=== PATIENT | male | born 1970 | race Caucasian/White ===

== ENCOUNTER 2020-11-13 11:49 | Emergency (ER) | payer BC, SELFPAY ==
[2020-11-13] VITALS (7 sets, daily range): BP systolic 106–139; BP diastolic 62–86; PULSE 79–94; RESP 16–27; TEMP 36.9; O2SAT 94–96
--- NOTE | ~2020-11-13 | XR_ITS ---
EXAMINATION: XR chest 1V portable DATE: 11/13/2020 17:17 INDICATION: Fever. Headache. TECHNIQUE: A single frontal view of the chest was obtained. COMPARISON: CT abdomen and pelvis 05/27/2009 FINDINGS: The lung volumes are small. There are airspace opacities in the mid and lower lung zones. N o pleural effusion or pneumothorax. Cardiomegaly is noted. IMPRESSION: 1. Small lung volumes with airspace opacities in the mid and lower lung zones, consistent with atelec tasis versus pneumonia. 2. Cardiomegaly. Reviewed, dictated and finalized at location A. OLOGY ORDERLY IMPRESSION: 1. Small lung volumes with airspace opacities in the mid and lower lung zones, consistent with atelectasis versus pneumonia. 2. Cardiomegaly.
--- NOTE | 2020-11-13 11:52 | ECG_ITS ---
Measurements Intervals [place] Rate: 96 P: 26 DC: 112 QRS: 5 QRSD: 87 T: -17 QT: 317 QTc: 402 Interpretive Statements SINUS RHYTHM WITH SHORT DC INTERVAL VOLTAGE CRITERIA FOR LVH CONSIDER INFERIOR INFARCT, AGE INDETERMINATE BORDERLINE T WAVE ABNORMALITY- ANTEROLATERAL LEADS BASELINE ARTIFACT- AVL, AVF ABNORMAL ECG Electronically Signed On 11-13-2020 15:36:44 DENTAL LABORATORY ASSISTANT by Riky Andrade D.O.
[2020-11-13 12:15] LABS: Basophils Percent Auto 0.3 % (0.2-1.2); Eosinophils Percent Auto 0.3 % (0-4.4); Hematocrit 41.4 % (42.0-52.0); Hemoglobin 14.1 g/dL (14.0-18.0); Immature Granulocyte Absolute 0.01 K/mm3 (0.00-0.031); Immature Granulocyte Percent A 0.3 % (0-0.5); Lymphocytes Absolute Auto 0.99 K/mm3 (0.9-3.2); Lymphocytes Percent Auto 32.6 % (18.3-44.2); Mean Corpuscular HGB Conc 34.1 g/dl (32-36); Mean Corpuscular Hemoglobin 28.8 pg (26-34); Mean Corpuscular Volume 84.5 fl (80-100); Mean Platelet Volume 9.2 fl (7.4-10.4); Monocytes Absolute Auto 0.2 K/mm3 (0.1-0.6); Monocytes Percent Auto 7.2 % (2.6-8.5); Neutrophils Absolute Auto 1.8 K/mm3 (1.3-6.7); Neutrophils Percent Auto 59.3 % (45.5-73.1); Platelet Count Result 160 k/mm3 (150-375)
[2020-11-13 12:28] LABS: Alanine Aminotransferase 54 U/L (4-50); Albumin Level 4.3 g/dL (3.5-5.1); Alkaline Phosphatase 69 U/L (38-126); Anion Gap 10 mmol/L (8-16); Aspartate Amino Transferase 50 U/L (17-59); Bilirubin,Total 0.6 mg/dL (0.2-1.3); Blood Urea Nitrogen 15 mg/dL (9-20); Calcium 8.3 mg/dL (8.4-10.2); Carbon Dioxide 30 mmol/L (22-30); Chloride 99 mmol/L (98-107); Estimated CRCL calculation 91 ml/min; Estimated Glomerular Filt Rate > 60; Glucose 99 mg/dL (75-110); Potassium 3.5 mmol/L (3.4-5.0); Sodium 139 mmol/L (137-145)
[2020-11-13] MEDS: KETOROLAC 30 MG/ML VIAL (*BKC) IV PUSH (15:01)
[2020-11-13] MEDS: SODIUM CHLORIDE 0.9% IV 1,000 ML 999 ML IV CONT (15:01)
[2020-11-13 16:12] LABS: Add Urine Microscopic? YES; Appearance Urine Clear (Clear); Bilirubin Urine Negative (Negative); Blood Urine Negative (Negative); Color Urine Yellow (Yellow); Glucose Urine UA Negative (Negative); Ketones Urine 1+ mg/dL (Negative); Leukocyte Esterase Ur Negative LEU/UL (Negative); Mucus Urine Few /lpf; Nitrate Urine Negative (Negative); Protein Urine 2+ mg/dL (Negative); Specific Grav Ur 1.028 (1.001-1.035); Squamous Epithelial Cell Urine Rare /hpf (Few); Urobilinogen Urine Negative mg/dL (<2.0); WBC Urine 0-3 /hpf
--- NOTE | 2020-11-13 16:55 | ED.WEAKNESS ---
HPI - Weakness General Chief complaint: Weakness Stated complaint: fatigued, SOB Time Seen by Provider: 11/13/20 14:20 History of Present Illness HPI Narrative: Patient is a 50-year-old male who presents ER with fever and weakness. Ongoing for the last 5 to 6 days since returning from [facility] on a vacation. Reports he had flown down there and flown back. No known Covid exposures. He has had fever up to 100.4 ?F. He has no sore throat or productive cough. He does have a dry cough. Mild sinus congestion. No loss of taste or smell. Reports has been trying to stay hydrated. No syncope or dizziness. Related Data Allergies Allergy/AdvReac Type Severity Reaction Status Date / Time No Known Allergies Allergy Mild Verified 11/13/20 11:50 Review of Systems Review of Systems: All systems reviewed & are unremarkable except as noted in HPI and below Constitutional: Constitutional: Denies chills, Reports fatigue, Reports fever(s) and Reports weakness ENT: Reports nasal congestion and Denies sore throat Cardiovascular: Cardiovascular: Denies chest pain, Denies rapid heart rate and Denies radiating jaw, neck or arm pain Respiratory: Respiratory: Reports cough, Denies dyspnea and Denies wheezing Gastrointestinal: Gastrointestinal: Denies abdominal pain, Denies nausea and Denies vomiting PMFSH Past Medical History Medical History (Updated 11/13/20 @ 17:42 by Jeff Chand MD) Diverticulitis Surgical History Surgical History (Updated 11/13/20 @ 17:04 by Jeff Chand MD) No pertinent past surgical history Family History Family History (Updated 11/14/18 @ 14:18 by DOCTOR UNKNOWN) Sibling Family history of alcoholism Grandparent Family history of malignant neoplasm of breast Social History Social History Smoking status: Former smoker Smoking end date: 10/18/10 Alcohol intake: never Gender identity (if verbalized by the patient): Male Exam Narrative: Exam Narrative: GENERAL: Well-appearing, well-nourished, and in no acute distress. HEAD: Normocephalic, atraumatic. CHEST: Clear to auscultation. No respiratory distress. HEART: Regular rate and rhythm. Normal peripheral pulses. ABDOMEN: Soft, nontender, nondistended. EXTREMITIES: Normal range of motion. No edema. SKIN: Warm, dry, no rash. NEURO: Alert and oriented x3. PSYCH: Normal mood and affect. Course Course Emergency Course: Flu negative. Covid pending. Informed of results. Discharge home with abx due to possible pna. Discussed that he should self isolate and patient verbalized understanding. Vital Signs Vital signs: Vital Signs Temperature 98.4 F 11/13/20 11:59 Pulse Rate 94 11/13/20 11:59 Respiratory Rate 18 11/13/20 11:59 Blood Pressure 139/76 11/13/20 11:59 Pulse Oximetry 95 11/13/20 11:59 Temperature 98.4 F 11/13/20 11:59 Pulse Rate 85 11/13/20 16:16 Respiratory Rate 27 H 11/13/20 16:16 Blood Pressure 120/74 11/13/20 16:16 Pulse Oximetry 95 11/13/20 16:16 MDM - Weakness Lab Data Result diagrams: 11/13/20 12:06 11/13/20 12:06 Labs: Lab Results 11/13/20 11/13/20 11/13/20 Range/Units 12:06 12:06 15:04 WBC 3.0 L (4.5-10.0) K/mm3 RBC 4.90 (4.6-6.20) M/mm3 Hgb 14.1 (14.0-18.0) g/dL Hct 41.4 L (42.0-52.0) % MCV 84.5 (80-100) fl MCH 28.8 (26-34) pg MCHC 34.1 (32-36) g/dl RDW 12.0 (11.5-14.5) % Plt Count 160 (150-375) k/mm3 MPV 9.2 (7.4-10.4) fl Immature Gran % (Auto) 0.3 (0-0.5) % Neut % (Auto) 59.3 (45.5-73.1) % Lymph % (Auto) 32.6 (18.3-44.2) % [place] % (Auto) 7.2 (2.6-8.5) % Eos % (Auto) 0.3 (0-4.4) % Baso % (Auto) 0.3 (0.2-1.2) % Lymph # (Auto) 0.99 (0.9-3.2) K/mm3 [place] # (Auto) 0.2 (0.1-0.6) K/mm3 Eos # (Auto) 0.0 (0-0.3) K/mm3 Baso # (Auto) 0.0 (0.0-0.1) K/mm3 Abs Immat Gran (auto) 0.01 (0.00-0.031) K/mm3 Absolute Neuts (aut
[2020-11-13 22:27] LABS: SARS-CoV-2 RNA PCR Positive
== END 2020-11-13 18:00 | disposition home or self-care (01) ==
PROVIDERS: Emergency Medicine; Emergency Provider Emergency Medicine
DX: U07.1 COVID-19 (principal); J12.82 Pneumonia due to coronavirus disease 2019
CPT/HCPCS: 36415; 71045; 80053; 81001; 85025; 87804; 93005; 96361; 96374; 99284; C9803; J1885; J7030; U0003; U0005

== ENCOUNTER 2021-12-05 09:40 | Emergency (ER) | payer BC, SELFPAY ==
--- NOTE | ~2021-12-05 | XR_ITS ---
EXAMINATION: XR chest 2V DATE: 12/05/2021 10:00 INDICATION: Left chest and left arm pain TECHNIQUE: Frontal and lateral views of the chest are obtained COMPARISON: 11/13/2020 FINDINGS: The lungs are free of acute opacities. There is no pleural effusion or pneumothorax. The ca rdiomediastinal silhouette is normal. There is mild thoracic spondylosis. Calcified left hilar lymph nodes are consistent with old granulomatous disease. IMPRESSION: 1. No acute cardiopulmonary abnormality. Reviewed, dictated and finalized at location A. LETTERER
--- NOTE | 2021-12-05 09:45 | ECG_ITS ---
Measurements Intervals [place] Rate: 82 P: 33 [place]: 141 QRS: 0 QRSD: 88 T: 12 QT: 347 QTc: 407 Interpretive Statements SINUS RHYTHM BORDERLINE ST-T WAVE ABNORMALITY- ANTEROLAT/INF LEADS BASELINE ARTIFACT- AVR, AVL, AVF, V2-V6 BORDERLINE ECG Electronically Signed On 12-05-2021 12:07:04 [employer]ER by Riky Andrade D.O.
[2021-12-05 09:49] VITALS: BP 161/111; PULSE 85; RESP 19; O2SAT 100
[2021-12-05 09:57] VITALS: PULSE 85
[2021-12-05 10:07] LABS: Basophils Percent Auto 0.6 % (0.2-1.2); Eosinophils Absolute Auto 0.1 K/mm3 (0-0.3); Eosinophils Percent Auto 1.9 % (0-4.4); Hematocrit 45.6 % (42.0-52.0); Hemoglobin 15.8 g/dL (14.0-18.0); Immature Granulocyte Absolute 0.02 K/mm3 (0.00-0.031); Immature Granulocyte Percent A 0.3 % (0-0.5); Lymphocytes Absolute Auto 2.29 K/mm3 (0.9-3.2); Lymphocytes Percent Auto 33.7 % (18.3-44.2); Mean Corpuscular HGB Conc 34.6 g/dl (32-36); Mean Corpuscular Hemoglobin 29.6 pg (26-34); Mean Corpuscular Volume 85.6 fl (80-100); Mean Platelet Volume 9.7 fl (7.4-10.4); Monocytes Absolute Auto 0.5 K/mm3 (0.1-0.6); Monocytes Percent Auto 7.5 % (2.6-8.5); Neutrophils Absolute Auto 3.8 K/mm3 (1.3-6.7); Platelet Count Result 228 k/mm3 (150-375); Red Blood Count 5.33 M/mm3 (4.6-6.20); Red Cell Distribution Width 11.9 % (11.5-14.5); White Blood Count 6.8 K/mm3 (4.5-10.0)
[2021-12-05 10:14] LABS: Prothrombin Time 12.4 Seconds (11.1-14.7)
[2021-12-05 10:15] LABS: Partial Thromboplastin Time 28.4 SECONDS (22.3-36.8)
[2021-12-05 10:19] LABS: Alanine Aminotransferase 56 U/L (4-50); Albumin Level 4.9 g/dL (3.5-5.1); Alkaline Phosphatase 102 U/L (38-126); Anion Gap 9 mmol/L (8-16); Aspartate Amino Transferase 42 U/L (17-59); Bilirubin,Total 0.8 mg/dL (0.2-1.3); Blood Urea Nitrogen 13 mg/dL (9-20); Calcium 9.6 mg/dL (8.4-10.2); Carbon Dioxide 27 mmol/L (22-30); Chloride 103 mmol/L (98-107); Estimated Glomerular Filt Rate > 60; Glucose 118 mg/dL (65-110); Lipase 149 U/L (23-300); Sodium 139 mmol/L (137-145)
--- NOTE | 2021-12-05 10:28 | ED.CHESTPAIN ---
HPI - Chest Pain General Chief Complaint: Chest Pain Stated Complaint: CP Time Seen by Provider: 12/05/21 10:03 Source: patient History of Present Illness HPI narrative: Patient presents with left-sided chest pain. Reports some pain for approximately 2 weeks worse over the past week. His pain is described as a pressure sensation radiates to his left arm no clear aggravating or alleviating factors. Reports he tried contact his primary care doctor yesterday was set up for appointment in 2 weeks symptoms were not improving so he came to the ER for evaluation. Denies any shortness of breath nausea vomiting diaphoresis. Ports history of hypertension does not take any medications he also reports history of elevated cholesterol but does not take any medications in the past week or so. Denies recent hospitalizations or surgeries denies prior history of blood clots Related Data Allergies Allergy/AdvReac Type Severity Reaction Status Date / Time No Known Allergies Allergy Mild Verified 11/13/20 11:50 Review of Systems Review of Systems: CONSTITUTIONAL: Denies fever, chills, or sweats. EYES: Denies visual changes, redness, or discharge. ENT: Denies rhinorrhea, congestion, sore throat, or otalgia. CARDIOVASCULAR: Denies palpitations, or edema. RESPIRATORY: Denies cough or dyspnea. GASTROINTESTINAL: Denies abdominal pain, nausea, vomiting, or diarrhea. GENITOURINARY: Denies dysuria or hematuria. SKIN: Denies rash or itching. MUSCULOSKELETAL: Denies back pain, joint pain, or myalgia. NEUROLOGIC: Denies headache, numbness, dizziness, or weakness. PSYCHIATRIC: Denies anxiety or depression. All systems reviewed & are unremarkable except as noted in HPI and below PMFSH Past Medical History Medical History Diverticulitis Surgical History Surgical History No pertinent past surgical history Family History Family History Sibling Family history of alcoholism Grandparent Family history of malignant neoplasm of breast Social History Social History Smoking status: Former smoker Smoking end date: 10/18/10 Alcohol intake: never Gender identity (if verbalized by the patient): Male Exam Narrative: GENERAL: Well-appearing, well-nourished, and in no acute distress. HEAD: Normocephalic, atraumatic. EYES: PERRLA and EOMI. ENT: Nares clear, no rhinorrhea or epistaxis. Mucous membranes moist. NECK: Supple. No masses. No JVD CHEST: Clear to auscultation. No respiratory distress. No wheezes rales or rhonchi HEART: Regular rate and rhythm. No murmur heard. Normal peripheral pulses. ABDOMEN: Soft, nontender, nondistended, normal active bowel sounds. EXTREMITIES: Normal range of motion. No edema. SKIN: Warm, dry, no rash. NEURO: No focal deficits. Alert and oriented x3. PSYCH: Normal mood and affect. Course Reevaluation(s) Reevaluation #1: Patient resting comfortably results and plan reviewed with patient. Patient is comfortable with outpatient plan. Date: 12/05/21 Time: 11:07 Vital Signs Vital signs: Vital Signs Pulse Rate 85 12/05/21 09:49 Respiratory Rate 19 12/05/21 09:49 Blood Pressure 161/111 H 12/05/21 09:49 Pulse Oximetry 100 12/05/21 09:49 Temperature 36.6 C 12/05/21 11:22 Pulse Rate 78 12/05/21 11:22 Respiratory Rate 14 12/05/21 11:22 Blood Pressure 127/83 12/05/21 11:22 Pulse Oximetry 99 12/05/21 11:22 MDM - Chest Pain MDM Narrative Medical decision making narrative: H&P as above, vss, pt looks clinically well, exam reassuring, labs clinically unremarkable with a negative troponin in 4 weeks of symptoms, img without acute process, additional labs/img considered, symptomatic relief available as needed, on reevaluation pt continues to looks clinically well. Sympto
[2021-12-05 10:30] LABS: Troponin I < 0.012 ng/mL (0.000-0.034)
[2021-12-05 11:09] LABS: Add Urine Microscopic? NO; Appearance Urine Clear (Clear); Bilirubin Urine Negative (Negative); Blood Urine Negative (Negative); Color Urine Yellow (Yellow); Glucose Urine UA Negative (Negative); Ketones Urine Negative (Negative); Leukocyte Esterase Ur Negative LEU/UL (Negative); Nitrate Urine Negative (Negative); Protein Urine Negative (Negative); Specific Grav Ur 1.015 (1.001-1.035); Urobilinogen Urine Negative mg/dL (<2.0)
[2021-12-05] MEDS: KETOROLAC 15 MG/ML VIAL (*BKC) IV PUSH (11:15)
[2021-12-05 11:22] VITALS: BP 127/83; PULSE 78; RESP 14; TEMP 36.6; O2SAT 99
== END 2021-12-05 11:23 | disposition home or self-care (01) ==
PROVIDERS: Emergency Provider Emergency Medicine; PCP Emergency Medicine
DX: R07.89 Other chest pain (principal); I10 Essential (primary) hypertension; E78.00 Pure hypercholesterolemia, unspecified; Z87.891 Personal history of nicotine dependence; R94.31 Abnormal electrocardiogram [ECG] [EKG]
CPT/HCPCS: 36415; 71046; 80053; 81003; 83690; 84484; 85025; 85610; 85730; 93005; 96374; 99284; J1885

== ENCOUNTER 2022-02-09 12:58 | Emergency (ER) | payer BC, SELFPAY ==
--- NOTE | 2022-02-09 13:03 | ED.URI ---
HPI - URI/Sore Throat General Chief Complaint: Upper Respiratory Infection Stated Complaint: sore throat cough upset stomach Time Seen by Provider: 02/09/22 13:03 Source: patient and RN notes reviewed History of Present Illness HPI Narrative: Patient is a 51-year-old male who presents the urgent care with complaints of sore throat, cough, nausea and ear pain. Patient states that it started on Wednesday and he has been using ibuprofen and aspirin. Denies of any known exposures. Denies any fever, nausea, vomiting, diarrhea. States that he took it at home COVID test which was negative. No other acute complaints. No acute distress noted. Patient aware of the plan of care. Some parts of this dictation were generated by voice recognition software and may contain typographical and/or grammatical inaccuracies. Related Data Home Medications Medication Instructions Recorded Confirmed No Home Medications 02/09/22 02/09/22 Allergies Allergy/AdvReac Type Severity Reaction Status Date / Time No Known Allergies Allergy Mild Verified 02/09/22 13:17 Review of Systems Review of Systems: CONSTITUTIONAL: Denies fever, chills, or sweats. Reports of fatigue EYES: Denies visual changes, redness, or discharge. ENT: Reports of bilateral ear pain, sore throat and postnasal drainage CARDIOVASCULAR: Denies chest pain, palpitations, or edema. RESPIRATORY: Reports of cough without dyspnea GASTROINTESTINAL: Reports of intermittent nausea without vomiting or diarrhea GENITOURINARY: Denies dysuria or hematuria. SKIN: Denies rash or itching. MUSCULOSKELETAL: Denies back pain, joint pain, or myalgia. NEUROLOGIC: Denies headache, numbness, or weakness. All other systems reviewed are negative, except as documented in HPI. [facility] Past Medical History Medical History Diverticulitis Surgical History Surgical History No pertinent past surgical history Family History Family History Sibling Family history of alcoholism Grandparent Family history of malignant neoplasm of breast Social History Social History Smoking status: Former smoker Smoking end date: 10/18/10 Alcohol intake: never Gender identity (if verbalized by the patient): Male Comments At the time of my signature, I reviewed and agree with the nursing past medical, surgical, social, and family history. There is no relevant family history pertinent to the patient complaint. Exam Narrative: GENERAL: This is a well-nourished, well-developed patient, in no apparent distress. HEAD: normocephalic, atraumatic. EYES: PERRL. Sclera clear/white. Vision is grossly intact. EARS: External ears normal, auditory canals clear and without drainage, TMs normal without perforation. Hearing grossly intact. NOSE: External nose normal with no obvious nasal discharge, nares without redness, no rhinorrhea. THROAT: Mucous membranes moist, posterior pharynx clear. Moderate postnasal drainage NECK: Neck supple, non-tender without lymphadenopathy CARDIOVASCULAR: Regular rate and rhythm without murmurs, gallops, or rubs. RESPIRATORY: Clear to auscultation. Breath sounds equal bilaterally. No wheezes, rales, or rhonchi. GASTROINTESTINAL: Abdomen soft, mild epigastric tenderness , nondistended. Bowel sounds are active.No guarding. SKIN: warm, intact with no suspicious lesions or rash, good texture and turgor. NEURO: awake, alert, and oriented to person, place and time. There were no obvious focal neurologic abnormalities. EXTREMITIES: No clubbing, cyanosis, or edema. Course Course Level of Care: Express Care Visit Vital Signs Vital signs: Vital Signs Temperature 98.0 F 02/09/22 13:15 Pulse Rate 83 02/09/22 13:15 Respiratory Rate 18 02/09/22 13:15 Blood Pressure 152/99 H 0
[2022-02-09 13:15] VITALS: BP 152/99; PULSE 83; RESP 18; TEMP 36.7; O2SAT 98
== END 2022-02-09 13:46 | disposition home or self-care (01) ==
PROVIDERS: Emergency Provider Nurse Practitioner Family; PCP Emergency Medicine
DX: J02.9 Acute pharyngitis, unspecified (principal); J06.9 Acute upper respiratory infection, unspecified; Z87.891 Personal history of nicotine dependence
CPT/HCPCS: 87081; 87804; 87880; 99213; G0463

== ENCOUNTER 2022-03-18 09:40 | Outpatient (CLI) | payer BC, SELFPAY ==
[2022-03-18 11:05] LABS: Hepatitis B Surface Antigen Negative (Negative)
[2022-03-18 11:11] LABS: HAV RESULT Negative (Negative); Hepatitis B Core IgM Result Negative (Negative)
[2022-03-18 11:22] LABS: Hepatitis C Virus Antibody Negative (Negative)
== END 2022-03-18 09:41 | disposition home or self-care (01) ==
PROVIDERS: PCP Emergency Medicine; Visit Provider Emergency Medicine
DX: E78.5 Hyperlipidemia, unspecified (principal)
CPT/HCPCS: 36415; 80074

== ENCOUNTER 2022-03-25 13:54 | Outpatient (CLI) | payer BC, SELFPAY ==
[2022-03-25 14:45] LABS: Appearance Urine Clear (Clear); Bilirubin Urine Negative (Negative); Blood Urine Negative (Negative); Color Urine Yellow (Yellow); Glucose Urine UA Negative (Negative); Ketones Urine Negative (Negative); Leukocyte Esterase Ur Negative LEU/UL (NEGATIVE); Nitrate Urine Negative (Negative); Protein Urine Negative (Negative); Urobilinogen Urine 0.2 mg/dL (<2.0)
[2022-03-25 14:54] LABS: Add Urine Microscopic? NO
[2022-03-25 15:15] LABS: Prostate Specific Antigen 1.5 ng/mL (< OR = 4.0)
[2022-03-25 16:19] LABS: HIV 1/2 Ab P24 Ag Result Negative (Negative)
[2022-03-26 07:29] LABS: Rapid Plasma Reagin Non-Reactive (NonReactive)
== END 2022-03-25 13:55 | disposition home or self-care (01) ==
LOC: ANHLAB 13:56
PROVIDERS: PCP Emergency Medicine; Visit Provider Emergency Medicine
DX: R10.9 Unspecified abdominal pain (principal)
CPT/HCPCS: 36415; 81003; 84153; 86592; 86703; 87086; 87491; 87591; G0432

== ENCOUNTER 2022-03-31 08:13 | Outpatient (CLI) | payer BC, SELFPAY ==
--- NOTE | ~2022-03-31 | US_ITS ---
US right upper quadrant DATE: 03/31/2022 08:55 INDICATION: Elevated liver enzymes TECHNIQUE: Real-time imaging of liver, pancreas, gallbladder COMPARISON: 05/27/2019 CT abdomen pelvis FINDINGS: No gallstones or gallbladder wall thickening are evident. Negative sonographic Kim's sig n. Normal hepatopedal portal venous flow direction. Up to 6 mm hepatic cysts. The pancreatic tail is obscured. The pancreas is otherwise unremarkable. IMPRESSION: Hepatic cysts Reviewed, dictated and finalized at [facility]. Reviewed, dictated and finalized at location A. IMPRESSION: Hepatic cysts
--- NOTE | ~2022-03-31 | XR_ITS ---
XR hip RT min 2V DATE: 03/31/2022 08:41 INDICATION: Right groin pain TECHNIQUE: AP and lateral views COMPARISON: None FINDINGS: No fracture or dislocation, avascular necrosis or bone destruction. Right hip joint space i s well preserved. The pubic symphysis and right sacroiliac joint appear intact. IMPRESSION: Negative Reviewed, dictated and finalized at location A. IMPRESSION: Negative
== END 2022-03-31 08:14 | disposition home or self-care (01) ==
PROVIDERS: PCP Emergency Medicine; Visit Provider Emergency Medicine
DX: R74.8 Abnormal levels of other serum enzymes (principal); K76.89 Other specified diseases of liver
CPT/HCPCS: 73502; 76705